=== PATIENT | female | born 1980 | race Caucasian/White ===

== ENCOUNTER 2021-03-06 20:57 | Emergency (ER) | payer BC, OTHER ==
[2021-03-07 00:07] LABS: HEMOGLOBIN 12.9 gm/dl (12.3-15.3); RED BLOOD COUNT 4.31 M/UL (4.00-5.10); WHITE BLOOD COUNT 6.3 K/UL (4.5-11.0)
[2021-03-07 00:22] LABS: BUN/CREATININE RATIO 15 (0-10)
== END 2021-03-07 05:12 | disposition home or self-care (01) ==
LOC: ER1 20:57
PROVIDERS: Physician Assistant
DX: R00.2 Palpitations (principal); R07.2 Precordial pain; R79.89 Other specified abnormal findings of blood chemistry; Z90.49 Acquired absence of other specified parts of digestive tract; Z90.710 Acquired absence of both cervix and uterus; F17.290 Nicotine dependence, other tobacco product, uncomplicated
CPT/HCPCS: 71045; 80053; 80307; 81001; 82550; 82553; 83874; 83880; 84439; 84443; 84484; 85025; 85610; 85730; 87086; 93005; 99285

== ENCOUNTER → 2021-06-07 | Outpatient (CLI) | payer OTHER ==
[~2021-06-07] MED LIST: MEDROL DOSEPAK 24 MG PO; NORFLEX 100 MG100 MG PO; Voltaren Gel 1 % TOP
== END ==
LOC: KOH-I 08:06
DX: M51.36 Other intervertebral disc degeneration, lumbar region (principal); M51.26 Other intervertebral disc displacement, lumbar region; M51.27 Other intervertebral disc displacement, lumbosacral region; M48.05 Spinal stenosis, thoracolumbar region
CPT/HCPCS: 72148

== ENCOUNTER 2021-06-09 18:11 | Emergency (ER) | payer OTHER ==
[2021-06-09] MEDS ORDERED: NORFLEX 100 MG100 MG PO (19:08)
[2021-06-09] MEDS ORDERED: MEDROL DOSEPAK 24 MG PO (19:08)
[2021-06-09] MEDS ORDERED: Voltaren Gel 1 % TOP (19:08)
== END 2021-06-09 19:58 | disposition home or self-care (01) ==
LOC: ER1 18:11
DX: M54.5 Low back pain (principal); J44.9 Chronic obstructive pulmonary disease, unspecified; Z90.49 Acquired absence of other specified parts of digestive tract; Z90.89 Acquired absence of other organs; Z90.710 Acquired absence of both cervix and uterus; F17.290 Nicotine dependence, other tobacco product, uncomplicated
CPT/HCPCS: 96372; 99283; J1100; J2270

== ENCOUNTER → 2021-09-18 | Outpatient (CLI) | payer OTHER | LOC: KOH-I 13:00 | DX: M50.221 Other cervical disc displacement at C4-C5 level (principal); M25.78 Osteophyte, vertebrae; M50.30 Other cervical disc degeneration, unspecified cervical region; M48.02 Spinal stenosis, cervical region | CPT/HCPCS: 72141 ==

== ENCOUNTER → 2021-11-02 | Outpatient (CLI) | payer OTHER | LOC: KOH-I 11:15 | DX: M54.6 Pain in thoracic spine (principal); M51.34 Other intervertebral disc degeneration, thoracic region | CPT/HCPCS: 72146 ==

== ENCOUNTER 2022-01-28 11:38 | Emergency (ER) | payer OTHER ==
[2022-01-28] MEDS ORDERED: NAPROSYN500 MG PO (14:06)
== END 2022-01-28 14:26 | disposition home or self-care (01) ==
LOC: ER1 11:38
DX: S46.912A Strain of unspecified muscle, fascia and tendon at shoulder and upper arm level, left arm, initial encounter (principal); F17.290 Nicotine dependence, other tobacco product, uncomplicated; W19.XXXA Unspecified fall, initial encounter; Y92.009 Unspecified place in unspecified non-institutional (private) residence as the place of occurrence of the external cause
CPT/HCPCS: 73030; 96372; 99283; J1885

== ENCOUNTER 2022-02-18 17:35 | Emergency (ER) | payer OTHER ==
[~2022-02-18 17:35] MED LIST changes: +NAPROSYN500 MG PO
[2022-02-18 19:20] LABS: HEMOGLOBIN 13.4 gm/dl (12.3-15.3); RED BLOOD COUNT 4.51 M/UL (4.00-5.10); WHITE BLOOD COUNT 6.5 K/UL (4.5-11.0)
[2022-02-18 19:43] LABS: BUN/CREATININE RATIO 16 (0-10)
[2022-02-18] MEDS ORDERED: COLACE100 MG PO (21:34)
[2022-02-18] MEDS ORDERED: ANUSOL HC SUPP1 SUPP PR (21:34)
[2022-02-18] MEDS ORDERED: CITRATE OF MAG296 ML PO (21:34)
== END 2022-02-18 21:57 | disposition home or self-care (01) ==
LOC: ER1 17:35
PROVIDERS: Emergency Medicine
DX: K64.8 Other hemorrhoids (principal); K59.00 Constipation, unspecified; F17.210 Nicotine dependence, cigarettes, uncomplicated
CPT/HCPCS: 74018; 80053; 81001; 83690; 85025; 99283